=== PATIENT | male | born 1955 | race Caucasian/White ===

== ENCOUNTER → 2016-09-30 | Outpatient (CLI) | payer BC | END | disposition home or self-care (01) | LOC: PCVCIMAG 13:26 | PROVIDERS: ATTEND Internal Medicine Cardiovascular Disease | DX: E78.00 Pure hypercholesterolemia, unspecified (principal); R09.89 Other specified symptoms and signs involving the circulatory and respiratory systems | CPT/HCPCS: 93325; 93351; 93880 ==

== ENCOUNTER → 2018-07-27 | Outpatient (CLI) | payer BC ==
--- NOTE | 2018-07-27 15:20 | PCVCIMAG ---
APPROVED REPORT Study performed: 07/27/2018 11:03:01 EXAM: Comprehensive 2D, Doppler, and color-flow Echocardiogram Patient Location: Echo lab Room #: 3Status: routine BSA: 2.11 HR: 55 bpmBP: 118/80 mmHg Rhythm: NSR Other Information Study Quality: Good Risk Factors: Cardiac Risk Factors: Hyperlipidemia Indications Dyspnea Syncope Elevated CA Score 2D Dimensions IVSd: 8.63 (7-11mm)LVOT Diam: 20.00 (18-24mm) LVDd: 58.81 mm PWd: 10.44 (7-11mm)Ascending Ao: 40.98 (22-36mm) LVDs: 39.76 (25-40mm) Left Atrium: 35.59 (27-40mm) Aortic Root: 36.02 mm LV Single Plane 4CH: 64.40 % LV Single Plane 2CH: 65.11 % Biplane EF: 64.9 % Volumes Left Atrial Volume (Systole) Single Plane 4CH: 51.65 mLSingle Plane 2CH: 34.88 mL LA ESV Index: 22.00 mL/m2 Aortic Valve AoV Peak [place].: 1.53 m/s AO Peak Gr.: 9.37 mmHgLVOT Max P.43 mmHg LVOT Max V: 1.17 m/s MARGO Vmax: 2.38 cm2 AI Vmax: 4.36 m/s AI [place]: 1.37 m/s2 AI PHT: 923.85 ms Mitral Valve E/A Ratio: 0.9 MV Decel. Time: 495.55 ms MV E Max Kelton.: 0.69 m/s MV A Kelton.: 0.78 m/s MV PHT: 143.71 ms IVRT: 62.28 ms TDI E/Lateral E': 9.86E/Medial E': 9.86 Medial E' Kelton.: 0.07 m/s Lateral E' Kelton.: 0.07 m/s Pulmonary Valve PV Peak Kelton.: 1.16 m/sPV Peak Gr.: 5.37 mmHg Pulmonary Vein P Vein S: 0.62 m/sP Vein A: 0.29 m/s P Vein D: 0.52 m/sP Vein A Dur.: 121.1 msec P Vein S/D Ratio: 1.19 Tricuspid Valve TR Peak Kelton.: 2.42 m/sRAP Estimate: 7.00 mmHg TR Peak Gr.: 23.38 mmHg PA Pressure: 29.00 mmHg Left Ventricle Left ventricle is at the upper limits of normal. There is normal LV segmental wall motion. There is normal left ventricular wall thickness. Left ventricular systolic function is normal. The left ventricular ejection fraction is within the normal range. LVEF is 60-65%. Grade I - abnormal relaxation pattern. Right Ventricle The right ventricle is normal size. The right ventricular systolic function is normal. Atria The left atrium size is normal. The right atrium size is normal. Aortic Valve The aortic valve is normal in structure. Mild aortic regurgitation. There is no aortic valvular stenosis. Mitral Valve The mitral valve is normal in structure. There is no mitral valve regurgitation noted. No evidence of mitral valve stenosis. Tricuspid Valve The tricuspid valve is normal in structure. Trace tricuspid regurgitation. Pulmonary artery pressure is 29 mmHg. Pulmonic Valve The pulmonary valve is normal in structure. There is no pulmonic valvular regurgitation. Great Vessels The aortic root is borderline dilated Ascending aorta measures 4.1 cm. IVC is normal in size and collapses >50% with inspiration. Pericardium There is no pericardial effusion. <Conclusion> Left ventricle is at the upper limits of normal. LVEF is 60-65%. Grade I - abnormal relaxation pattern. The right ventricle is normal size. The left atrium size is normal. Mild aortic regurgitation. Ascending aorta measures 4.1 cm. The mitral valve is normal in structure. Trace tricuspid regurgitation. Pulmonary artery pressure is 29 mmHg. The aortic root is borderline dilated There is no pericardial effusion.
== END | disposition home or self-care (01) ==
LOC: PCVCIMAG 13:00
PROVIDERS: ATTEND Internal Medicine Cardiovascular Disease
DX: I35.1 Nonrheumatic aortic (valve) insufficiency (principal); I71.2 Thoracic aortic aneurysm, without rupture; R55 Syncope and collapse; R06.02 Shortness of breath; R93.1 Abnormal findings on diagnostic imaging of heart and coronary circulation
CPT/HCPCS: 93306

== ENCOUNTER → 2019-04-23 | Outpatient (CLI) | payer BC ==
--- NOTE | 2019-04-23 15:22 | PCVCIMAG ---
APPROVED REPORT Study performed: 04/23/2019 14:31:09 Exam: Stress Echocardiogram Indication: Hyperlipidemia, Hypertension Patient Location: Echo lab Stress Nurse: Anne Lopes RN Status: routine Ht: 6 ft 0 in HR: 63 bpm BP: 102/60 mmHg Rhythm: NSR Medical History Medical History: HTN, Hyperlipidemia Procedure The patient underwent an Exercise Stress Test using the Sam Protocol. Blood pressure, heart rate, and EKG were monitored. An Echocardiogram was performed by extrusion technician in four stages in quad fashion. At peak stress, four selected images were obtained and placed side by side with resting images for comparison. Stress Test Details Stress Test: Exercise stress testing was performed using a Sam protocol. HR Resting HR: 63 bpmMax Heart Rate (APMHR): 156 bpm Max HR Achieved: 144 bpmTarget HR (85% APMHR): 132 bpm % of APMHR: 92 Recovery HR: 82 bpm HR response to stress: Normal HR response to stress BP Resting BP: 102/60 mmHg Max BP: 152/66 mmHg Recovery BP: 82/ mmHg BP response to stress: Normal blood pressure response to stress. ECG Resting ECG: Sinus Rhythm Stress ECG: Sinus Rhythm Recovery ECG: Sinus Rhythm Clinical Reason for Termination: Maximal effort Exercise duration: 10 min 53 sec Highest Stage Achieved: Stage 4: 4.2 mph at 16% grade. Exercise capacity: 13.40 METs Overall Exercise Capacity for Age: Good Pre-Stress Echo The resting Echocardiogram showed normal left ventricular contractility with an estimated Ejection Fraction of about 55-60%. Post-Stress Echo The stress Echocardiogram showed normal left ventricular contractility with an estimated Ejection Fraction of about 60-65%. Conclusion Clinical Response: Non-ischemic Exercise Capacity: Superior Stress ECG Response: Non-ischemic Stress Echo Images: Non-ischemic Other Information Study Quality: Good
== END | disposition home or self-care (01) ==
LOC: PCVCIMAG 14:13
PROVIDERS: ATTEND Internal Medicine Cardiovascular Disease
DX: E78.5 Hyperlipidemia, unspecified (principal); I10 Essential (primary) hypertension; R93.1 Abnormal findings on diagnostic imaging of heart and coronary circulation
CPT/HCPCS: 93325; 93351